=== PATIENT | female | born 1970 | race African-American/Black ===

== ENCOUNTER 2018-07-07 07:20 | Emergency (ER) | payer BC ==
[2018-07-07 07:36] VITALS: TEMP 98.6; BMI 24.0
--- NOTE | 2018-07-07 08:17 | PDOC ---
History of Present Illness - General Chief Complaint: Injury Stated Complaint: FALL Time Seen by Provider: 07/07/18 07:40 History Source: Patient - History of Present Illness Initial Comments: 07/07/18 08:03 48F w/ no significant pmhx presents after a fall this morning. Pt states she was walking to [place]. She was walking down tripped over some rocks because it was dark and landed on her left side. She admits to pain mainly on the L leg that is worsened with knee extension. No hx of trauma to the leg in the past. Denies taking anything for pain after the fall. She also denies trauma to her head or loc. Past History - Past Medical History Allergies/Adverse Reactions: Allergies Allergy/AdvReac Type Severity Reaction Status Date / Time guaifenesin [From Robitussin] Allergy Verified 07/07/18 07:32 acetaminophen [From NyQuil] AdvReac Verified 07/07/18 07:32 dextromethorphan Hbr AdvReac Verified 07/07/18 07:32 [From NyQuil] doxylamine [From NyQuil] AdvReac Verified 07/07/18 07:32 ibuprofen AdvReac Verified 07/07/18 07:32 [From DayQuil Sinus Pressure/Pain] pseudoephedrine HCl AdvReac Verified 07/07/18 07:32 [From NyQuil] Home Medications: Ambulatory Orders No Home Medications 0 dose .ROUTE UTDICT 12/07/12 COPD: No - Suicide/Smoking/Psychosocial Hx Smoking Status: No Smoking History: Never smoked Number of Cigarettes Smoked Daily: 0 Hx Alcohol Use: No Drug/Substance Use Hx: No Substance Use Type: None *Physical Exam - Vital Signs Last Vital Signs Temp Pulse Resp BP Pulse Ox 98.6 F 96 H 18 116/76 99 07/07/18 07:32 07/07/18 07:32 07/07/18 07:32 07/07/18 07:32 07/07/18 07:32 Medical Decision Making - Medical Decision Making 07/07/18 08:47 L knee injury s/p fall -Pt complaining LLE pain upon knee extension. Will obtain L knee xray to r/o fracture. -PO Ibuprofen given for pain 07/07/18 09:45 -L knee xray showed no acute knee pathology *DC/Admit/Observation/Transfer Diagnosis at time of Disposition: Contusion Knee contusion Qualifiers: Encounter type: initial encounter Laterality: left Qualified Code(s): S80.02XA - Contusion of left knee, initial encounter Knee abrasion Qualifiers: Encounter type: initial encounter Laterality: left Qualified Code(s): S80.212A - Abrasion, left knee, initial encounter - Discharge Dispostion Disposition: HOME Condition at time of disposition: Good Decision to Admit order: No - Referrals Referrals: [facility] [place] [facility] [place] [Provider Group] Ana Wilson MD [Staff Physician] - 1 week - Patient Instructions Additional Instructions: You were seen in the ED for complaints of left knee pain after a fall. In the ED, an xray of your left knee was done that did not show any acute condition. There is no need for hospitalization at this time. You are being discharged home. Please follow up with your primary care physician within 1 week. You have been given a referral for [facility]. Please take Ibuprofen 400 mg every 6 hours as needed for pain. A prescription has been sent to your pharmacy. If you experience worsening leg pain, shortness of breath, chest pain, problems with balance while walking, or have another traumatic fall, please proceed to your nearest emergency department immediately. - Post Discharge Activity Forms/Work/School Notes: Back to Work
--- NOTE | 2018-07-07 08:17 | PDOC ---
Attending Attestation - Resident Resident Name: Jennifer Bee - ED Attending Attestation I have performed the following: I have examined & evaluated the patient, The case was reviewed & discussed with the resident, I agree w/resident's findings & plan, Exceptions are as noted - HPI HPI: 07/07/18 08:14 48y F no pmhx presents s/p mechanical fall, falling on her left side. Was able to get u fawn her own, complaining of L knee pain radiating down her leg to ankle. Worse with L Knee extension. Denies head injury, LOC, neck pain, UE pain. denies etoh, recreational drug on exam: L Knee - 1cm abrasion, no deformity, no significnt pain on passive ROM, +ttp to L patella 07/07/18 09:52 xray negative pt feeling better with pain meds will dc with supportive care dx: contusion, knee abrasion
[2018-07-07] MEDS ORDERED: KETOROLAC TROMETHAMINE 30 MG/1 ML VIAL IVPUSH ONE (08:23)
[2018-07-07] MEDS ORDERED: IBUPROFEN 600 MG TABLET (FP) PO ONE (08:39)
[2018-07-07] MEDS ORDERED: IBUPROFEN 400 MG TABLET (FP) PO ONE (08:43)
[2018-07-07 10:23] VITALS: BP 129/78; PULSE 85
== END 2018-07-07 10:43 | disposition home or self-care (01) ==
LOC: JER 07:20
DX: S80.02XA Contusion of left knee, initial encounter (principal); S80.212A Abrasion, left knee, initial encounter; W18.39XA Other fall on same level, initial encounter; Y93.89 Activity, other specified; Y92.410 Unspecified street and highway as the place of occurrence of the external cause
CPT/HCPCS: 73562-TC-LT-FY; 99282-25